=== PATIENT | male | born 1965 | race Caucasian/White ===

== ENCOUNTER 2017-12-07 11:14 | Emergency (ER) | payer OTHER ==
[~2017-12-07] VITALS: Ht 190.5 cm; Wt 133.0 kg
[2017-12-07 11:30] VITALS: BP 144/89; PULSE 62; RESP 16; TEMP 97.6; O2SAT 97
[2017-12-07] MEDS ORDERED: DILT120C50 PO (12:03)
--- NOTE | 2017-12-07 12:23 | PD ---
HPI Chief Complaint: Skin Problem Time Seen by Provider: 11:53 Travel History International Travel<30 days: No Contact w/Intl Traveler<30days: No Traveled to known affect area: No History of Present Illness HPI 52-year-old male presents to the emergency room for evaluation of itchy bite to his right medial hand and left fifth finger for the past 2 days. He does not remember injuring it or getting bitten by anything. Patient states it has significantly increased in size over the past day. He is in no pain. Denies any drainage. He is concerned he was bit by something and does not want it to get any worse. Denies fever, chills, nausea, vomiting. Only history of A. fib for which he takes diltiazem. [facility] Social History Tobacco Use: Yes Allergies-Medications (Allergen,Severity, Reaction): Coded Allergies: No Known Allergies (Unverified , 12/07/17) Reported Meds & Prescriptions Reported Meds & Active Scripts Active Reported Diltiazem CD 24 HR 120 Mg Caper 120 Mg PO DAILY Review of Systems Except as stated in HPI: all other systems reviewed are Neg Physical Exam Narrative GENERAL: Well-nourished, well-developed male in no acute distress. Afebrile. Ambulatory. SKIN: Focused skin assessment warm/dry. There is a 1 cm in diameter blood filled lesion to the right medial hand with surrounding erythema. No lymphangitis. Nontender. No drainage. There is a pleasant centimeter excoriations on the left fifth dorsal finger. HEAD: Normocephalic. EYES: No scleral icterus. No injection or drainage. NECK: Supple, trachea midline. No JVD or lymphadenopathy. CARDIOVASCULAR: Regular rate and rhythm without murmurs, gallops, or rubs. RESPIRATORY: Breath sounds equal bilaterally. No accessory muscle use. MUSCULOSKELETAL: No cyanosis, or edema. Full range of motion of bilateral hands per Data Data Last Documented VS Vital Signs Date Time Temp Pulse Resp B/P (MAP) Pulse Ox O2 Delivery O2 Flow Rate FiO2 12/07/17 11:30 97.6 62 16 144/89 (107) 97 Orders Orders Ed Discharge Order (12/07/17 13:21) MDM Medical Decision Making Medical Screen Exam Complete: Yes Emergency Medical Condition: Yes Medical Record Reviewed: Yes Differential Diagnosis Abscess, laceration, folliculitis, hematoma Narrative Course 52-year-old male presents to the emergency room for evaluation of itchy, fluid- filled lesion to his right medial hand for the past 2 days. Patient states it is increasing in size. No pain or drainage. Physical exam reveals a small hematoma to the right medial hand with mild surrounding erythema. No lymphangitis. Nontender. No drainage. I suspect patient popped blood vessels under his skin from scratching so hard. He denies any trauma or injury to the area. It was drained, see procedure note for details. Patient discharged on topical antibacterial ointment. Told to follow-up with a primary care physician or return for worsening symptoms. He understands and agrees to plan. Procedures Procedure Narrative INCISION AND DRAINAGE OF ABSCESS: The area was prepped and was sterilely draped. A subcutaneous wheal of 1% leg with a total number 3 mL was used to anesthetize the area properly. A number 11 scalpel was used to make a 0.5 cm incision across the area of the abscess. The abscess was drained, complex loculations were broken down, and irrigated with normal saline. Sterile dressing applied. Diagnosis Primary Impression: Insect bite Qualified Codes: W57.XXXA - Bitten or stung by nonvenomous insect and other nonvenomous arthropods, initial encounter Referrals: Primary Care Physician Additional Instructions: Rest and drink plenty of fluids. Apply ointment as directed for 1 week. Return to emergency room for worsening symptoms, as discussed. Scripts Mupirocin Topical (Mupirocin Topical) 2 % Oint 1 APPLIC TOPICAL BID for Mgmt Bacterial Infection, #22 GM 0 Refills Prov: Lidia Banuelos MD 12/07/17 Disposition: 01 DISCHARGE HOME Condition: Stable Hermelinda Beverly December 07, 2017 12:23
[2017-12-07] MEDS ORDERED: MUPI2OIN TOPICAL (13:21)
== END 2017-12-07 13:39 | disposition home or self-care (01) ==
LOC: NEPK 11:14
DX: S60.561A Insect bite (nonvenomous) of right hand, initial encounter (principal); W57.XXXA Bitten or stung by nonvenomous insect and other nonvenomous arthropods, initial encounter; I48.91 Unspecified atrial fibrillation; Z72.0 Tobacco use
CPT/HCPCS: 10060